=== PATIENT | male | born 1945 | race Caucasian/White ===

== ENCOUNTER 2016-08-06 07:50 | Inpatient (IN) | payer OTHER, MEDICARE ==
[~2016-08-06] VITALS: Ht 182.9 cm; Wt 111.6 kg
--- NOTE | ~2016-08-06 | HP ---
ADMIT: 08/06/2016 RM/LOC: 425 [facility] MR#: [id number] [address] [address] NIYAH MORRIS [address] [place] [address] History and Physical SEX: M AGE: 70 : 1945 DATE OF SERVICE: CHIEF COMPLAINT: Chest pain and palpitations. HISTORY OF PRESENT ILLNESS: The patient is a very pleasant, 70-year-old gentleman who is well-known to me. He has a past medical history of atrial fibrillation/atrial flutter status post pacemaker, coronary artery disease status post bypass grafting and PCI. He is chronically anticoagulated also with a history of chronic diastolic heart failure and chronic kidney disease presents to [facility] emergency room today with complaints of chest pain and palpitations. The patient notes that yesterday afternoon and evening sitting in his easy chair, noticed his heart rate going fast, noticed a type of a substernal chest discomfort. The patient noted it kind of came and went, but then came a little bit more progressive and constant overnight and finally this morning, the discomfort brought him into the hospital. I had seen the patient previously this last week. He was noted to have some higher heart rates after a pacemaker check. I did communicate with Cardiology, we increased his carvedilol. He was asymptomatic at that time and plans were made for him to have the heart institute setup an electrophysiology evaluation. The patient notes he has been taking all his medications as directed. No fevers, chills, or cough. Does note chronic dyspnea on exertion. Does have chronic lower extremity edema which he states is maybe a little worse here recently. As mentioned, no bowel or bladder complaints have been noted. Upon arrival to the emergency room, he was noted to have a mildly elevated troponin with heart rates in the 130-140 range. PAST MEDICAL HISTORY: 1. Coronary disease status post coronary artery bypass grafting. 2. AFib/atrial flutter on chronic anticoagulation. He is status post permanent pacemaker placement. 3. Chronic diastolic heart failure. 4. Chronic kidney disease. 5. Ulcerative colitis previously on Simponi, on chronic prednisone. 6. Polymyalgia rheumatica in remission. 7. Steroid-induced diabetes. 8. COPD. 9. Obstructive sleep apnea on CPAP. 10.History of total shoulder arthroplasty. 11.Hypertension. 12.Hyperlipidemia. 13.History of benign paroxysmal positional vertigo. 14.History of DVT. 15.History of anemia of chronic disease. 16.Vitamin D deficiency. 17.History of peptic ulcer disease. 18.C-spine arthritis. 19.Gout. 20.He is also status post carpal tunnel release. ADMIT: 08/06/2016 RM/LOC: 425 [facility] MR#: [id number] [address] [address] NIYAH MORRIS [address] [place] [address] History and Physical SEX: M AGE: 70 : 1945 HOME MEDICATIONS: Include: 1. Lasix. 2. Carvedilol. 3. Prednisone. 4. Omeprazole. 5. Simvastatin. 6. Allopurinol. 7. Onglyza. 8. Lialda. 9. Norel. 10.Simponi. 11.Aspirin. 12.Multivitamin. 13.Calcium plus vitamin D. 14.Potassium. 15.He is also on Eliquis. ALLERGIES: NO KNOWN MEDICAL ALLERGIES. SOCIAL HISTORY: He is a prior smoker, occasional drinker. He is retired. FAMILY HISTORY: Noncontributory. REVIEW OF SYSTEMS: As noted above. All systems are reviewed and are negative. PHYSICAL EXAMINATION: VITAL SIGNS: As mentioned on arrival, his heart rates were in the 130 range. Received some metoprolol and Cardizem and now he just has run in the 110 range. Last blood pressure 118/77 with a MAP of 88, respiratory rate is 16, he is saturating 98%. GENERAL: This is an obese gentleman, no apparent distress. He is awake and alert. He is oriented x3. Cooperative with examiner. HEENT: Normocephalic and atraumatic. Mucous membranes are moist. NECK: Supple. LUNGS: He is little diminished at the bases but otherwise is clear without wheezes or rales. CHEST: Pacemaker placed in left upper chest. HEART: Tachy but is regular. ABDOMEN: Soft, nontender, nondistended. Positive bowel sounds throughout. EXTREMITIES: Show 1 to 2+ edema; feet, ankles, and calves bilaterally. NEUROLOGIC: cranial nerves are intact. No focal deficits are noted. LABORATORY AND X-RAY DATA: Lab work shows a mag of 2, sodium 142, potassium is 4, creatinine is 2.1. His baseline has run anywhere between 1.8-2.1. CK 57, MB 2.2, troponin 0.068. Hemoglobin 9.9, white count 10.6, and 315,000 platelets. Chest x-ray shows pacemaker in place, left upper chest. His findings were compared, left total shoulder arthroplasty, prior median sternotomy is noted. No obvious airspace disease is noted. His EKG looks a ADMIT: 08/06/2016 RM/LOC: [address] [place] [address] MR#: [id number] [id number] [place] [phone] NIYAH MORRIS [address] [place] [address] History and Physical SEX: M AGE: 70 : 1945 lot like atrial flutter and looks 2:1 to me at this time. ASSESSMENT AND PLAN: 1. Chest discomfort. 2. Atrial fibrillation/flutter. 3. Chronic anticoagulation. 4. Known coronary artery disease status post coronary artery bypass grafting with mildly elevated troponin. 5. Chronic diastolic heart failure. 6. Chronic kidney disease. 7. Ulcerative colitis on chronic steroids. 8. Anemia of chronic disease. 9. Steroid-induced diabetes. 10.Obstructive sleep apnea. At this point, we need to try to get him rate controlled. I did try a couple vagal maneuvers on him and nothing has worked at this point. Visit with medical office representative. There has been some talk of electrophysiology evaluation. We will rule him out with serial cardiac enzymes and EKGs to see if we can get his heart rate slowed down. Visit with medical office representative, possible further evaluation with electrophysiology. He is currently hemodynamically stable, but certainly cardioversion could be attempted. We will watch his volume status closely, plan sliding scale insulin. We will get him back on his home CPAP. Prateek German MD/ kvng JOB #: [id number] CC: Prateek German, Attending Physician Prateek German, Family Physician
[~2016-08-06 07:50] MED LIST: ANORO ELLIPTA 62.1 - IH; ASA CHILDREN'S81 MG PO; ASPIRIN EC81 MG PO; CALTRATE-600 W600 MG PO; CENTRUM COMPLE1 EACH PO; CENTRUM SILVER1 EACH PO; COREG DPS12.5 MG PO; COREG25 MG PO; DELTASONE DPS5 MG PO; ELIQUIS2.5 MG PO; KLOR-CON M2020 ME1 PO; LASIX DPS40 MG PO; LASIX DPS80 MG PO; LIALDA1.2 GM PO; MAALOX DPS30 ML PO; MILK OF MAGNESI10 ML PO; MIRALAX PACKET17 GM PO; NITROSTAT0.4 MG SL; NORCO 7.5-3251 EACH PO; ONGLYZA2.5 MG PO; PRILOSEC DPS20 MG PO; PROAIR HFA8.5 GM IH; PROVENTIL HFA6.7 GM IH; SENOKOT S1 TAB PO; SIMPONI100 MG/1 M IN; SIMPONI100 MG/11 SQ; SYMBICORT160 MCG/6 IH; TYLENOL DPS325 MG PO; ZAROXOLYN2.5 MG PO; ZOCOR DPS20 MG PO; ZYLOPRIM-DPS300 MG PO
--- NOTE | 2016-08-07 10:41 | ER ---
ADMIT: 08/06/2016 RM/LOC: ER [facility] MR#: [id number] [address] [place], [place] [address] NIYAH MORRIS [address] [place] [address] Emergency Room Report SEX: M AGE: 70 : 1945 DATE: 08/06/2016 ADDENDUM: A 70-year-old white male, coming with a rate of 135, been consistent there. He was seen in the [facility]'s office, seen by Dr. German and he had a pacer rep look at it a couple of days ago. He still is 135 at this time, pacer back. He has atrial flutter 2:1. He has been kind of running in and out of that, but he has been consistent today. Tried total of 10 of metoprolol IV, it brought his pressure down, but did not break his rhythm. I spoke with both Dr. German and Dr. Martines, we will need to admit him. He has a little borderline troponin at 0.068, creatinine is 2.1, got a hemoglobin of 9.9. His EKG shows sinus tach. Again pacer rep was also here and interrogated the pacer, which showed it was functioning, but he was continued to run 2:1 flutter. At this time, I spoke with Dr. German, he will admit, Dr. Martines consult. CONDITION ON DISCHARGE: Serious but stable. Negro Pat MD/ kvng JOB #: [id number] CC: Negro Pat MD, Attending Physician
[2016-08-09] MEDS ORDERED: DELTASONE DPS5 MG PO (17:46)
[2016-08-09] MEDS ORDERED: ZOCOR DPS20 MG PO (17:46)
[2016-08-09] MEDS ORDERED: PEPCID DPS20 MG PO (17:46)
[2016-08-09] MEDS ORDERED: CARVEDILOL25 MG PO (17:46)
[2016-08-09] MEDS ORDERED: LIALDA1.2 GM PO (17:47)
[2016-08-09] MEDS ORDERED: ONGLYZA2.5 MG PO (17:47)
[2016-08-09] MEDS ORDERED: ZYLOPRIM-DPS300 MG PO (17:47)
[2016-08-09] MEDS ORDERED: ASA CHILDREN'S81 MG PO (17:48)
[2016-08-09] MEDS ORDERED: LASIX DPS80 MG PO ×2 (17:48→17:49)
[2016-08-09] MEDS ORDERED: CALTRATE-600 W600 MG PO (17:48)
[2016-08-09] MEDS ORDERED: CENTRUM SILVER1 EAC1 PO (17:48)
[2016-08-09] MEDS ORDERED: CARDIZEM CD DP120 MG PO (17:50)
[2016-08-09] MEDS ORDERED: LASIX DPS40 MG PO (17:50)
[2016-08-09] MEDS ORDERED: PRILOSEC DPS20 MG PO (17:50)
[2016-08-09] MEDS ORDERED: SPIRIVA18 MCG IH (17:51)
--- NOTE | 2016-08-11 17:04 | DS ---
ADMIT: 08/06/2016 RM/LOC: 425 [facility] MR#: [id number] [address] [place] [id number] NIYAH MORRIS [address] [place] [address] Discharge Summary SEX: M AGE: 70 : 1945 ADMISSION DATE: 08/06/2016 DISCHARGE DATE: 08/08/2016 DISCHARGE DIAGNOSES: 1. Chest discomfort, resolved. 2. Elevated troponin. 3. Atrial flutter with rapid ventricular response. 4. Known coronary artery disease. 5. Steroid induced diabetes. 6. Chronic diastolic heart failure. 7. Chronic kidney disease. 8. Ulcerative colitis, on chronic prednisone therapy. 9. History of polymyalgia rheumatica. 10.Hypertension. 11.Hyperlipidemia. 12.COPD (chronic obstructive pulmonary disease). CONSULTATIONS: Cardiology. PROCEDURES: None. REASON FOR ADMISSION: A very pleasant 70-year-old gentleman presented to the [facility] emergency room on the day of admission with complaints of chest pressure and pain. He was noted to be in atrial flutter with a 2:1 block going approximately 130-140 beats per minute and had a mildly elevated troponin. With all of the symptoms and findings, he was admitted for further evaluation and treatment. For complete details, please see H and P dictated on the day of admission. HOSPITAL COURSE: At the time of admission, the patient was placed in a progressive care bed. He underwent monitoring with telemetry, serial cardiac enzymes and EKGs. Cardiology was consulted. He was placed on a diltiazem drip to get his heart rate under control. The patient was not anticoagulated ADMIT: 08/06/2016 RM/LOC: 425 [facility] MR#: [id number] [address] [place] [phone] NIYAH MORRIS [address] [place] [address] Discharge Summary SEX: M AGE: 70 : 1945 due to his wishes. We got his heart rates under good control. Cardiology saw him. His echocardiogram looked fine. There were plans made for him to be rate controlled with his carvedilol and diltiazem and visit with the cyber security instructor. His cardiac enzymes trended down. He ambulated and ate without difficulty. He was switched to oral Cardizem with great rate control taking place and he was thought to be ready for discharge home on 08/08. His discharge diet is a 2 g sodium cardiac ADA diet as tolerated with a 2 L fluid restriction. His activity is as tolerated. His discharge medications are found on his discharge medication list. Really the only things that were changed as an patient were the addition of Cardizem and titration of his carvedilol. He will have follow up with manager unit/electrophysiology and General Cardiology as well as myself all within the next couple of weeks. Prateek Germna MD/ dawitg JOB #: [id number] CC: Prateek German MD, Attending Physician Prateek German MD, Family Physician
--- NOTE | 2016-08-18 11:50 | CO ---
ADMIT: 08/06/2016 RM/LOC: 425 [facility] MR#: [id number] [address] [address] NIYAH DRIVER [facility] [place] [address] Consultation SEX: M AGE: 70 : 1945 DATE OF CONSULTATION: 08/07/2016 ATTENDING PHYSICIAN: Prateek German CONSULTING PHYSICIAN: Ra Martines MD REASON FOR CONSULTATION: Atrial flutter. HISTORY OF PRESENT ILLNESS: Mr. Driver is a pleasant 70-year-old, white male, asked to consult on at the request of Dr. Prateek German for the problem of atrial flutter. He presented to our office earlier this week for routine device check, was found to be in atrial flutter with a rapid ventricular response. Followed up with Dr. German and rate control strategy was initiated. He has not felt any better and he was feeling a little more short of breath. We decided to come into the emergency room yesterday. Since then, Cardizem drip was started, and he has been feeling a little bit better. He denies any chest pain. At this point in time, he has little bit of orthopnea but it is better. He denies any fevers, chills, cough, or cold symptoms. Denies any hematemesis or hematochezia. PAST MEDICAL HISTORY: Reviewed and includes: 1. Coronary artery disease, history of multivessel bypass with history of sick sinus syndrome with permanent pacemaker placement. 2. Paroxysmal atrial fibrillation and atrial flutter. There was chronic diastolic heart failure. 3. Chronic renal insufficiency. 4. Ulcerative colitis and chronic prednisone therapy. 5. PMR in remission. 6. Steroid induced diabetes. 7. Chronic obstructive pulmonary disease. 8. Obstructive sleep apnea on CPAP. 9. Hypertension. 10.Hyperlipidemia. 11.History of deep venous thrombosis. 12.History of anemia of chronic disease. 13.Post carpal tunnel release. MEDICATIONS: Currently include: 1. Aspirin 81 a day. 2. Coreg 25 b.i.d. 3. Deltasone 5 mg a day. 4. Delzicol 1200 mg b.i.d. 5. Klor-Con 20 mEq daily. 6. Lasix 80 mg daily with an additional dose Sunday, Sunday, and Sunday. 7. His Protonix is 40 mg a day. 8. Zocor 20 mg at bedtime. 9. Spiriva 18 mcg a day. 10.NovoLog as directed. 11.Cardizem drip. ADMIT: 08/06/2016 RM/LOC: 425 [facility] MR#: [id number] [address] [phone] NIYAH DRIVER [address] [place] [address] Consultation SEX: M AGE: 70 : 1945 ALLERGIES: NONE KNOWN. FAMILIAL HISTORY: There is no family history of premature coronary artery disease. SOCIAL HISTORY: He is a former smoker and social drinker. He is retired and . is present briefly for examination today. REVIEW OF SYSTEMS: A full 10-point review of systems was obtained and deemed to be negative except for the pertinently dictated positives in the HPI. PHYSICAL EXAMINATION: VITAL SIGNS: Blood pressure is 132/93 with a pulse of 120, respiratory rate is 20 with a temperature of 96.5, his weight today is 247 pounds. GENERAL: He is a pleasant well-nourished, well-developed white male, in no acute distress. Alert and oriented x3. NECK: Brisk carotid upstrokes. No JVD or bruit. CHEST: Clear. HEART: Regular. ABDOMEN: Soft. EXTREMITIES: No cyanosis, clubbing, or edema. MUSCULOSKELETAL: Normal. NEUROLOGIC: Normal. SKIN: [place], warm, and dry. LABORATORY AND ANCILLARY DATA: Shows a sodium 141, potassium 3.9, BUN is 50. His glucose is 103. His creatinine is 2.1, mag is 1.9. CK is 35, MB is 2.5, troponin is 0.123, 0.20 followed by 0.191. White blood cell count 10.8 with a hemoglobin of 9.8 and a platelet count of 296,000. EKG shows atrial flutter. ASSESSMENT AND PLAN: 1. Atrial fibrillation/flutter. 2. Permanent pacemaker for sick sinus syndrome. 3. Coronary artery disease multivessel bypass. 4. Ulcerative colitis. 5. History of peptic ulcer disease. 6. Diastolic heart failure, chronic stable. 7. Chronic renal insufficiency. 8. Steroid induced diabetes. Discussed with the patient regarding resuming anticoagulation, and I also ADMIT: 08/06/2016 RM/LOC: 425 [facility] MR#: [id number] [address] [id number] [place] [address] Consultation SEX: M AGE: 70 : 1945 discussed this case with Dr. German personally. Niyah would at all cost like to stay off anticoagulation because of severe bruising and the problems he had bleeding with ulcerative colitis in the past. We did discuss the fact that this puts him at a higher risk of a CVA, and he is aware of that. He would like to remain off it is possible, and I discussed with Dr. German so because of this, we will maintain him with rate control strategy. We will switch him to oral Cardizem. Keep him on aspirin and consider having him evaluated by EP for AV william ablation. Should he agree or want to do anticoagulation, we will start him on a low-dose anticoagulant. Consider JAVID cardioversion at that time and atrial flutter ablation with EP in the future, but otherwise we will continue with rate control strategy and consider discharge in the next day or two. Ra Martines MD/ kvng JOB #: [id number] CC: Prateek German, Attending Physician Prateek German, Family Physician
[2016-09-06] MEDS ORDERED: VANCO 1.751.75 GM/25 IV (07:04)
[2016-09-06] MEDS ORDERED: KENALOG CR 0.0280 GM TP (07:04)
[2016-09-06] MEDS ORDERED: MAALOX DPS30 ML PO (07:05)
[2016-09-06] MEDS ORDERED: SENOKOT S1 TAB PO (07:05)
[2016-09-06] MEDS ORDERED: NORCO 5-325 TA1 EACH PO (07:05)
[2016-09-06] MEDS ORDERED: BENADRYL-DPS25 MG PO (07:06)
[2016-09-06] MEDS ORDERED: TYLENOL DPS325 MG PO (07:06)
== END 2016-08-08 13:25 | disposition home or self-care (01) | DRG 309 ==
LOC: ER 07:50 → 4PCU 10:19
PROVIDERS: ADMIT Internal Medicine
DX: I48.92 Unspecified atrial flutter (principal); I50.32 Chronic diastolic (congestive) heart failure; K51.90 Ulcerative colitis, unspecified, without complications; I13.0 Hypertensive heart and chronic kidney disease with heart failure and stage 1 through stage 4 chronic kidney disease, or unspecified chronic kidney disease; E09.9 Drug or chemical induced diabetes mellitus without complications; D63.8 Anemia in other chronic diseases classified elsewhere; E55.9 Vitamin D deficiency, unspecified; I48.0 Paroxysmal atrial fibrillation; R79.89 Other specified abnormal findings of blood chemistry; I25.10 Atherosclerotic heart disease of native coronary artery without angina pectoris; N18.9 Chronic kidney disease, unspecified; J44.9 Chronic obstructive pulmonary disease, unspecified; E66.9 Obesity, unspecified; T38.0X5A Adverse effect of glucocorticoids and synthetic analogues, initial encounter; G47.33 Obstructive sleep apnea (adult) (pediatric); E78.5 Hyperlipidemia, unspecified; M10.9 Gout, unspecified; Z87.11 Personal history of peptic ulcer disease; Z98.61 Coronary angioplasty status; Z95.1 Presence of aortocoronary bypass graft; Z79.01 Long term (current) use of anticoagulants; Z96.619 Presence of unspecified artificial shoulder joint; Z86.718 Personal history of other venous thrombosis and embolism; Z95.0 Presence of cardiac pacemaker; Z79.52 Long term (current) use of systemic steroids; Z79.82 Long term (current) use of aspirin; Z87.891 Personal history of nicotine dependence